=== PATIENT | female | born 1955 | race Caucasian/White ===

== ENCOUNTER 2017-01-20 05:45 | Day surgery (SDC) | payer BC ==
[~2017-01-20] VITALS: Ht 167.6 cm; Wt 105.8 kg
[~2017-01-20 05:45] MED LIST: LEVO75TA10 PO; SIMV20TA6 PO
[2017-01-20 06:22] VITALS: Ht 167.6 cm; Wt 105.8 kg
[2017-01-20 06:25] VITALS: RESP 16
[2017-01-20 06:42] VITALS: BP 140/81; PULSE 90; RESP 18; TEMP 97.8; O2SAT 96
[2017-01-20] MEDS ORDERED: LR 1,000 ML IV SCH (07:00)
[2017-01-20] MEDS ORDERED: LIDOCAINE 1% (10mg/ml) 2ml SDV INJ ONE (07:00)
[2017-01-20] MEDS ORDERED: PROPOFOL 500mg 50 ML IV ONE (07:27)
--- NOTE | 2017-01-20 07:32 | ANESPREOP ---
Anesthesia Record Date and Time DATE: 01/20/17 TIME: 0700 Proposed Surgical Procedure COLONOSCOPY Allergies: Coded Allergies: No Known Allergies (Unverified , 01/19/17) Ht/Wt/BMI Height: 5 ' 6.00 " Weight: 105.800 kg BMI: 37.7 kg/m2 Vital Signs Date Time Temp Pulse Resp B/P Pulse Ox O2 Delivery O2 Flow Rate FiO2 01/20/17 06:42 97.8 90 18 140/81 96 Room Air Medications Inpatient Medications Current Medications Medications (Trade) Dose Ordered Sig/Raulito Start Time Stop Time Status Last Admin Dose Admin Lactated Ringer's (Lactated Ringers) 1,000 ml @ 50 mls/hr Q20H 01/20/17 07:00 01/20/17 06:32 50 MLS/HR Levothyroxine Sodium (Levothyroxine Sodium) 75 Mcg Tablet, 1 TAB PO DAILY, ( Reported) Last Taken: on 01/19/17 Simvastatin (Simvastatin) 20 Mg Tablet, 1 TAB PO DAILY, (Reported) Last Taken: on 01/19/17 Currently on Beta Bassam: No Medical/Surgical History Anesthesia PMH: Reports: Thyroid Disease (HYPOTHYROIDISM), Denies: *Diabetes, Anesthesia Reactions (NO AIRWAY ISSUES), Arthritis, Cancer, Clotting Problems, Glaucoma, Malignant Hyperthermia, Sleep Apnea Smoking Status: Never smoker Use Chewing Tobacco?: No Substance Use Type: does not use HX of Last Menstrual Period: HYST. Past Surgical History Orthopedic Surgeries: Abdominal Surgeries: Genitourinary Surgeries: Cardiac Surgeries: Endocrine Surgeries: Reproductive Surgeries: Yes - HYST. Neurological Surgeries: Ear Surgeries: Nose Surgeries: Throat Surgeries: Other Surgeries: Yes - COLONOSCOPY Anesthesia Adverse Reactions: FOUND none Family Hx of Anesthesia Advers: none Hx of Motion Sickness: No Physical Exam Respiratory: Lungs clear Cardiovascular: FOUND Regular rate, rhythm Airway Assessment Mallampati Score: II TMD: 3 Fingerbreadths Neck Extension: Fair Overall Assessment: No Airway Concerns ASA: 2 Plan Anesthesia Plan: TIVA Discussion Discussed risks/options/alternatives of anesthesia and questions answered. Patient consents. Nursing pain assessment noted. Attestation Statement Prior to the delivery of any anesthetic medication, I examined the patient, developed the plan, obtained the patient's consent and discussed the risk and benefits of the procedure with the patient/guardian. DAVY FRANCOIS CRNA January 20, 2017 07:32
[2017-01-20 08:06] VITALS: BP 102/57; PULSE 86; RESP 14; TEMP 99.3; O2SAT 96
--- NOTE | 2017-01-20 08:10 | ANESPO ---
Post-Op Note Date 01/20/17 Time: 08:10 Status Pt Participated in Evaluation: Pt participated in person Vital Signs Date Time Temp Pulse Resp B/P Pulse Ox O2 Delivery O2 Flow Rate FiO2 01/20/17 06:42 97.8 90 18 140/81 96 Room Air Respiratory Function: Airway patent Cardiovascular Function: Regular pulse Mental Status: Alert/oriented Pain Level Intensity: 0 Hydration: Taking po fluids Complications during Recovery None apparent Follow-Up Instructions Instructions Per Surgeon DAVY FRANCOIS CRNA January 20, 2017 08:10
[2017-01-20 08:26] VITALS: BP 133/79; PULSE 74; RESP 20; O2SAT 98
[2017-01-20 08:40] VITALS: BP 132/78; PULSE 70; RESP 20; O2SAT 99
--- NOTE | 2017-01-20 15:32 | OPNOTEF ---
DATE OF PROCEDURE: 01/20/2017 SURGEON: Cruz Dasilva MD PREOPERATIVE DIAGNOSIS Colorectal cancer surveillance. POSTOPERATIVE DIAGNOSIS Colorectal cancer surveillance, mild diverticulosis, colonic polyp x 3 located at 40 cm, 35 cm and rectal vault. PROCEDURE: Colonoscopy with polypectomies via hot forceps technique. ANESTHESIA: TIVA. BRIEF HISTORY Marleny is a 61-year-old female patient who was seen for comprehensive exam. We discussed colorectal cancer surveillance and decided to proceed with colonoscopy as part of her screening. For completeness please refer to office notes. FINDINGS Upon colonoscopy there was no evidence for angiodysplastic lesions or agnes malignancies. The patient was found to have mild diverticulosis. Patient was also found have three colonic polyps as described above. These polyps were located 40 cm, 35 cm and within the rectal vault. All three polyps were removed via hot forceps technique and sent to Pathology. Polyps ranged in size from 3 mm to 5 mm in diameter. DESCRIPTION OF PROCEDURE After informed consent was obtained, the patient was brought to the endoscopy suite and placed on the table in the left lateral decubitus position. The patient subsequently underwent total intravenous anesthesia by the nurse drill operator automatic per my request. Next, a digital rectal examination was performed; normal sphincter tone. No rectal masses were appreciated. An Olympus colonoscope was inserted in the anus and advanced with the lumen of the colon under direct visualization at all times until the cecum was ascertained. Triangulation of the tenia coli, ileocecal valve and appendiceal lumen were all visualized. The scope was then slowly withdrawn, again while maintaining visualization of the lumen at all times. As stated above, the entire colon was without evidence for angiodysplastic lesions or agnes malignancies. The patient was found to have mild diverticulosis. The patient was also found to have three colonic polyps as described above. Photographs were obtained for documentation. The scope continued to be withdrawn until it was removed from the patient's anal verge. The patient tolerated the procedure without difficulty and was sent back to the preoperative area in stable condition. We will contact Marleny with the pathology results. I suspect at least one of these polyps is a tubular adenoma. MTDD
== END 2017-01-20 08:41 | disposition home or self-care (01) ==
LOC: NSC 05:45
PROVIDERS: ATTEND Family Medicine
DX: Z12.11 Encounter for screening for malignant neoplasm of colon (principal); D12.6 Benign neoplasm of colon, unspecified; K62.1 Rectal polyp; K57.30 Diverticulosis of large intestine without perforation or abscess without bleeding; E03.9 Hypothyroidism, unspecified; E78.5 Hyperlipidemia, unspecified; Z79.82 Long term (current) use of aspirin; Z79.899 Other long term (current) drug therapy
CPT/HCPCS: 45384; J2704; J7120